=== PATIENT | male | born 1990 | race Asian ===

== ENCOUNTER 2017-02-22 17:21 | Emergency (ER) | payer OTHER ==
[~2017-02-22] VITALS: Ht 175.3 cm; Wt 82.0 kg
[2017-02-22] MEDS ORDERED: truvada (17:32)
[2017-02-22] MEDS ORDERED: lisinopril (17:32)
[2017-02-22] MEDS ORDERED: citalopram (17:32)
[2017-02-22] MEDS ORDERED: folic acid (17:32)
[2017-02-22] MEDS ORDERED: LORAZEPAM 1MG TABLET PO ONE ×3 (19:15→21:15)
[2017-02-22] MEDS ORDERED: LISINOPRIL 5MG TABLET PO ONE (20:30)
[2017-02-22 22:52] VITALS: BP 150/90
== END 2017-02-22 22:54 | disposition home or self-care (01) ==
LOC: ER 17:21
DX: F41.0 Panic disorder [episodic paroxysmal anxiety] (principal); I10 Essential (primary) hypertension; F32.9 Major depressive disorder, single episode, unspecified; F17.200 Nicotine dependence, unspecified, uncomplicated; F12.10 Cannabis abuse, uncomplicated
CPT/HCPCS: 93005; 99284